=== PATIENT | female | born 1930 | race Caucasian/White ===

== ENCOUNTER 2017-10-11 16:53 | Inpatient (IN) | payer OTHER ==
[~2017-10-11] VITALS: Ht 160 cm; Wt 70.8 kg
[~2017-10-11 16:53] MED LIST: ACETAMINOPHEN-1 EAC1 PO; ADULT LOW DOSE81 MG PO; ALEVE220 MG PO; ALLOPURINOL 30300 M1 PO; ALLOPURINOL 30300 M3 PO; ALTACE10 MG PO; ALTACE5 M1 PO; AMBEREN PO; ARICEPT 5 MG TAB5 MG PO; ASPIR 8181 MG PO; ASPIRIN325 PO; ATENOLOL 100MG100 M2 PO; BACTRIM DS TAB1 EACH PO; CARDIZEM CD180 MG PO; CARTIA XT; CELEXA 20 MG TA20 M1 PO; DARVOCET-N 1001 EACH PO; DICLOFENAC SODI75 MG PO; DIGOXIN250 MCG PO; ELIDEL CREAM 1%30 G1 TOP; EVISTA PO; GENTAMICIN 0.1%15 G2 TOP; GLUCOPHAGE500 MG PO; HYDRALAZINE 10M10 MG PO; HYDROCHLOROTHIA25 M1 PO; HYDROCODONE-AP1 EAC6 PO; KEFLEX500 MG PO; LEVAQUIN 250 M250 MG PO; LEVAQUIN 500 M500 M2 PO; LUMIGAN2.5 M1 OPHTHALMIC; MEDROLDOSEPACK PO; METFORMIN ER 5500 MG PO; NORVASC 2.5 MG2.5 M1 PO; ONE DAILY FOR1 EAC3 PO; PREDNISONE 10 M10 M1 PO; RESTORIL15 MG PO; SANCTURA20 MG PO; TOPROL XL50 MG PO; TRAMADOL 50 MG50 MG PO; TRIANEX17 GM TOP; TYLENOL325 MG PO; ULTRAM 50MG TAB50 MG; VESICARE10 M1 PO; VITAMIN B-1100 M1 PO; XALATAN2.5 ML; XALATAN2.5 ML OPHTHALMIC; ZOCOR40 MG PO
[2017-10-11 16:57] VITALS: BP 197/93
[2017-10-11 17:19] LABS: ABSOLUTE BASOPHILS 0.1 thou/uL (0.0-0.2); ABSOLUTE EOSINOPHILS 0.1 thou/uL (0.0-0.7); ABSOLUTE LYMPHOCYTES 2.7 thou/uL (0.8-5.3); ABSOLUTE MONOCYTES 0.5 thou/uL (0.0-1.2); ABSOLUTE NEUTROPHILS 5.2 thou/uL (1.6-8.1); BASOPHILS 0.7 %; EOSINOPHILS 1.5 %; HEMATOCRIT 39.6 % (37.0-47.0); HEMOGLOBIN 13.3 gm/dL (12.0-15.0); MCH 29.3 pg (26.0-34.0); MCHC 33.5 g/dL (28.0-37.0); MCV 87.4 fL (80.0-100.0); MONOCYTES 6.1 %; MPV 7.6 fl. (7.2-11.1); NUCLEATED RBCS 0 /100WBC; PLATELET COUNT* 241 thou/uL (150-400); POLYS 60.7 %; RBC 4.53 mil/uL (4.20-5.00); RDW-CV 15.5 % (10.5-14.5); WBC 8.6 thou/uL (4.0-11.0)
[2017-10-11 17:27] LABS: ANION GAP 10 mmol/L (7-16); BUN 18 mg/dL (7-18); CALCIUM 9.8 mg/dL (8.5-10.1); CHLORIDE 104 mmol/L (98-107); CO2 24 mmol/L (21-32); CREATININE 1.2 mg/dL (0.6-1.3); GLUCOSE 153 mg/dL (70-99); POTASSIUM 3.8 mmol/L (3.5-5.1); SODIUM 138 mmol/L (136-145)
[2017-10-11 17:28] LABS: APTT 26.6 Seconds (25.0-31.3)
[2017-10-11] MEDS ORDERED: TRAMADOL 50 MG50 MG PO (17:47)
[2017-10-11 17:48] LABS: ALBUMIN 3.7 g/dL (3.4-5.0); ALKALINE PHOSPHATASE 95 U/L (46-116); CK-MB MASS 0.5 ng/mL (<0.5-3.6); NT-PRO BRAIN NAT PEPTIDE 4864 pg/mL (<300); SGOT 16 U/L (15-37); SGPT 20 U/L (30-65); TOTAL BILIRUBIN 0.4 mg/dL (<0.1-1.0); TOTAL PROTEIN 7.5 g/dL (6.4-8.2); TROPONIN-I LEVEL <0.06 ng/mL (<0.06)
[2017-10-11] MEDS ORDERED: BACTRIM DS TAB1 EACH PO (17:48)
[2017-10-11 17:50] LABS: URINE BILIRUBIN NEGATIVE (Negative); URINE BLOOD NEGATIVE (Negative); URINE CLARITY CLEAR; URINE COLOR YELLOW; URINE GLUCOSE-RANDOM NEGATIVE (Negative); URINE KETONES NEGATIVE (Negative); URINE LEUKOCYTES-REFLEX NEGATIVE (Negative); URINE NITRITE-REFLEX NEGATIVE (Negative); URINE PROTEIN TRACE (Negative); URINE SPECIFIC GRAVITY 1.025 (1.005-1.030); URINE UROBILINOGEN 0.2 E.U./dl (0.2-1.0)
[2017-10-11 18:15] VITALS: BP 185/95
[2017-10-11 18:30] VITALS: BP 195/97
[2017-10-11 18:35] VITALS: BP 197/96
--- NOTE | 2017-10-11 18:59 | NUR ---
PT ADMITTED TO ROOM 233 AT APPROXIMATELY 1840 FROM ED VIA CART WITH TIA. REPORT RECEIVED FROM HAMILTON ADAMSON. PT ORIENTED TO ROOM AND CALL LIGHT. ADMISSION HISTORY COMPLETED. REFER TO CHARTING. SEPSIS SCREENING COMPLETED-NEGATIVE. BEDSIDE SWALLOW SCREEN COMPLETED- PT PASSED WITH NO DIFFICULTIES. NIH COMPLETED- PT SCORING 1 DUE TO NOT KNOWING CURRENT MONTH/YEAR. PT BLOOD PRESSURE ELEVATED. REFER TO CHARTING. PT GIVEN PRN CLONIDINE IN ED AND GIVEN 10MG PO HYDRALAZINE BY THIS RN. WILL MONITOR CLOSELY. PT TRACING SR WITH FIRST DEGREE AND BBB ON THE WARP TRUCKER. PT ON RA SAT 91%- PT PLACED ON 2L NC SAT UP TO 96%. PT DENIES ANY PAIN OR SHORTNESS OF BREATH. PT INCONT OF URINE PER PT DAUGHTER. PT HAD BRIEF ON- BRIEF REMOVED AND TRAV PLACED UNDER PT. PER PT DAUGHTER, PT LIVES AT HOME WITH A GENTLEMAN- SIMILAR TO A ROOM MATE- PT HAS CARE GIVERS THAT COME OVER AND TAKE CARE OF PT, PT IS RARELY AT HOME BY HERSELF. PT DAUGHTER WENT TO CHECK ON PT TODAY AND NOTED THAT PT HAD SLURRED WORDS AND RIGHT SIDED FACIAL DROOP. PT IS WHEELCHAIR BOUND AT HOME. 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 NEURO CONSULT IN PLACE FOR TIA. MEDICATIONS PER MAY. PT REPOSITIONED EVERY 2 HOURS FOR COMFORT. HOURLY ROUNDING OBSERVED. BED IN LOW POSITION. BED ALARM IN PLACE. FALL PRECAUTIONS IN PLACE. CALL LIGHT WITHIN REACH. WILL CONTINUE PLAN OF CARE.
[2017-10-11 19:45] VITALS: BP 176/93
[2017-10-12] VITALS: BP 174/71
[2017-10-12 04:00] VITALS: BP 190/83
[2017-10-12 06:00] LABS: CHOLESTEROL 183 mg/dL (<200); HDL CHOLESTEROL 60 mg/dL (>40); LDL CHOLESTEROL 109 mg/dL (<100); TC:HDL 3.1 Ratio (Not establshd); TRIGLYCERIDE 73 mg/dL (<150); VLDL 15 mg/dL (<40)
[2017-10-12 06:03] LABS: SERUM ASSESSMENT Clear
[2017-10-12 08:00] VITALS: BP 197/94
--- NOTE | 2017-10-12 08:04 | NUR ---
RECEIVED REPORT AND ASSUMED CARE AT 1900. BP SLIGHTLY ELEVATED, OTHERWISE VSS. CARDIAC MONITORING IN PLACE. ASSESSMENT COMPLETED CHARTED. NIH=0. PT DENIES ANY COMPLAINTS OF PAIN. PT ON 2L NC, Q2T. DISCUSSED PLAN OF CARE WITH PT, VERBALIZED UNDERSTANDING. DURING HOURLY ROUNDING PT ASSESSED 2210, NIH=8. NEUROLOGY CONTACTED. CTA OF HEAD W/ CONTRAST AND CTA CAROTIDS ORDERED AND COMPELTED. RESULTS COMMUNICATED TO PHYSICIAN. MRI ORDERED FOR 10/12/17 MORNING. PT REASSESSED 2347 NIH=4. ASSESSMENT 0400, NIH=9 . FOLLOW UP ASSESSMENT 0530 NIH=8. PHYSICIAN CONTACTED. PLAN OF CARE TO FOLLOW DIAGNOSTIC TESTING. HOURLY ROUNDING COMPLETED, ALL NEEDS MEET. POSITION CHANGED EVERY TWO HOURS. BED LOCKED IN LOWEST POSITION, CALL LIGHT WITHIN REACH, BED ALARM ON. NURSING WILL CONTINUE TO MONITOR.
[2017-10-12 11:25] VITALS: BP 203/103
--- NOTE | 2017-10-12 13:18 | NUR ---
Nurse Coordinator note: Met with son, Antoni, and friend, Leonel. Patient sleeping durinmg exchange. Reviewed stroke program and plan. Discussed NPO status and that IV hydration will be provided until determination made by Speech Language Pathologist. RNs will provide oral care during this time. Will continue to follow patient.
--- NOTE | 2017-10-12 14:06 | NUR ---
ASSUMED CARE OF PT AT 1335. INTRODUCED MY SELF TO PT AND FAMILY. PT RESTING IN BED NO C/O PAIN OR DISTRESS AT THIS TIME. WILL CONTINUE TO MONITOR.
--- NOTE | 2017-10-12 14:30 | NUR ---
MET WITH PT AND DTR/LYNNE TO DISCUSS HOME SITUATION/DC PLANNING. PT LIVES WITH HER S/O ELIGIO. SHE HAS 7 CHILDREN, ALL OF WHOM ASSIST WITH PT'S CARE. PT ISN'T ALONE AT HOME, EITHER ELIGIO IS THERE OR CHILDREN OR HIRED CG ARE WITH HER. PT NEEDS ASSIST WITH TRANSFERS. SHE IS W/C BOUND. PT HAS W/C, GRAB BARS, HI TOILET SEAT AND WALK IN TUB. PT CAN FEED AND DRESS HERSELF, BATHE HERSELF ONCE IN THE TUB AND TOILET SELF ONCE TRANSFERRED ON THE TOILET. FAMILY DOES COOKING, CLEANING, ETC. THEY TRANSPORT TO [employer]. OTHERWIFE PT IS HOMEBOUND. HAS HAD HH IN THE PAST AND BEEN TO [place] FOR SNF [facility] REHAB. ADMITTED WITH STROKE, HAS INPT REHAB EVAL. DISCUSSED WITH DTR OPTIONS OF REHAB, SNF OR HOME. THEIR GOAL IS TO TAKE PT HOME IF SHE IS ABLE TO GET BACK CLOSE TO HER BASELINE PLOF. DTRS LYNNE AND BARRON ARE DPOA. AWAIT THERAPY EVALS. WILL FOLLOW
--- NOTE | 2017-10-12 14:35 | 2DMMODE ---
[place] [address] 2 D/M-MODE ECHOCARDIOGRAM Name: MARICARMEN KENNEDY Room: [place] [address] ADM IN [facility]#: [id number] Admission: 10/11/17 Attend Phys: Danny Pena, Discharge: Date of : [birth year] Date of Service: 10/12/17 1435 Report #: [id number] THIS REPORT FOR: //name// APPROVED REPORT Study performed: 10/12/2017 10:04:36 EXAM: Comprehensive 2D, Doppler, and color-flow Echocardiogram Patient Location: In-Patient Room #: [facility] Status: routine BSA: 1.74 HR: 59 bpm BP: 197/94 mmHg Rhythm: NSR Other Information Study Quality: Good Indications CVA/TIA Echo Enhancing Agent Indication: Rule out Shunt Agent(s) / Amount(s) Used: Agitated Saline 10 cc 2D Dimensions LVEF(%): 50.08 (>50%) IVSd: 13.04 (7-11mm) LVOT Diam: 20.15 (18-24mm) LVDd: 46.45 mm PWd: 10.96 (7-11mm) Ascending Ao: 35.98 (22-36mm) LVDs: 34.67 (25-40mm) Aortic Root: 33.15 mm Edwards's LVEF: 50.08 % Volumes Left Atrial Volume (Systole) LA ESV Index: 42.50 mL/m2 Aortic Valve AoV Peak Chau.: 1.25 m/s AO Peak Gr.: 6.22 mmHg LVOT Max P.51 mmHg AO Mean Gr.: 3.29 mmHg LVOT Mean P.21 mmHg LVOT Max V: 0.79 m/s AO V2 VTI: 21.89 cm LVOT Mean V: 0.50 m/[place] [address] 2 D/M-MODE ECHOCARDIOGRAM Name: MARICARMEN KENNEDY Room: [address] IN ..#: [id number] Admission: 10/11/17 Attend Phys: Danny Pena, Discharge: Date of : [birth year] Date of Service: 10/12/17 1435 Report #: [id number] SKIP (VTI): 2.48 cm2 LVOT V1 VTI: 17.04 cm Mitral Valve E/A Ratio: 0.46 MV Decel. Time: 333.69 ms MV E Max Chau.: 0.53 m/s MV PHT: 96.77 ms MVA (PHT): 2.27 cm2 TDI E/Lateral E': 7.57 E/Medial E': 13.25 Medial E' Chau.: 0.04 m/s Lateral E' Chau.: 0.07 m/s Pulmonary Valve PV Peak Chau.: 0.82 m/s PV Peak Gr.: 2.70 mmHg Tricuspid Valve RAP Estimate: 5.00 mmHg TR Peak Gr.: 21.27 mmHg RVSP: 26.27 mmHg PA Pressure: 26.27 mmHg Left Ventricle The left ventricle is normal size. There is distal septal hypokinesis Mild concentric left ventricular hypertrophy. Left ventricular systolic function is moderately decreased. LVEF is 40%. Grade I - abnormal relaxation pattern. Right Ventricle The right ventricle is normal size. The right ventricular systolic function is normal. Atria Left atrium is mild to moderately dilated. The right atrium size is normal. Aortic Valve Mild aortic valve sclerosis. Mild aortic regurgitation. There is no aortic valvular stenosis. Mitral Valve The mitral valve is normal in structure. Mild mitral regurgitation. No evidence of mitral valve stenosis. Tricuspid Valve The tricuspid valve is normal in structure. [place] [address] 2 D/M-MODE ECHOCARDIOGRAM Name: MARICARMEN KENNEDY Room: [address] IN [facility]#: [id number] Admission: 10/11/17 Attend Phys: Danny Pena, Discharge: Date of : [birth year] Date of Service: 10/12/17 1435 Report #: [id number] valve regurgitation noted. Pulmonic Valve The pulmonary valve is normal in structure. There is no pulmonic valvular regurgitation. Great Vessels The aortic root is normal in size. IVC is normal in size and collapses with >50% inspiration Pericardium There is no pericardial effusion. <Conclusion> The left ventricle is normal size. Mild concentric left ventricular hypertrophy. Left ventricular systolic function is moderately decreased. LVEF is 40%. Grade I - abnormal relaxation pattern. The right ventricle is normal size. Left atrium is mild to moderately dilated. Mild aortic valve sclerosis. Mild aortic regurgitation. There is no aortic valvular stenosis. The mitral valve is normal in structure. Mild mitral regurgitation. No evidence of mitral valve stenosis. The tricuspid valve is normal in structure. IVC is normal in size and collapses with >50% inspiration There is no pericardial effusion. There is distal septal hypokinesis <ELECTRONICALLY SIGNED> By: Sharath Ortega MD, FACC 10/12/17 1435 1435 1435 Sharath Ortega MD, FACC /INF
[2017-10-12 15:12] VITALS: BP 178/87
--- NOTE | 2017-10-12 17:29 | EKG ---
[place] [address] ELECTROCARDIOGRAM REPORT Name: MARICARMEN KENNEDY Room: [place] [address] ADM IN .R.#: [id number] Admission: 10/11/17 Attend Phys: Danny Pena MD Discharge: Date of : [birth year] Report #: [id number] THIS REPORT FOR: //name// [facility] ED Test Date: 2017-10-11 Test Time: 17:11:16 Pat Name: MARICARMEN KENNEDY Department: Room: [facility] Gender: F Baggage Smasher: Baylee CUEVAS : 1930 Requested By: Maikel Zimmerman Order Number: [id number] MD: Sharath Ortega Measurements Intervals [place] Rate: 82 P: -8 DE: 223 QRS: -23 QRSD: 143 T: 153 QT: 403 QTc: 471 Interpretive Statements Sinus rhythm Prolonged DE interval Left bundle branch block Compared to ECG 05/29/2015 10:41:35 Ventricular premature complex(es) no longer present Electronically Signed On 10-12-2017 17:29:42 CDT by Sharath Ortega [email or web address] <ELECTRONICALLY SIGNED> By: Sharath Ortega MD, [facility] 10/12/17 1729 1711 1711 Sharath Ortega MD, [facility] /EPI
--- NOTE | 2017-10-12 17:32 | EKG ---
[place] [address] ELECTROCARDIOGRAM REPORT Name: MARICARMEN KENNEDY Room: [place] [address] ADM IN M.R.#: [id number] Admission: 10/11/17 Attend Phys: Danny Pena MD Discharge: Date of : [birth year] Report #: [id number] THIS REPORT FOR: //name// [facility] Test Date: 2017-10-12 Test Time: 04:55:01 Pat Name: MARICARMEN KENNEDY Department: Room: [place] [address] Gender: F After School Program Assistant: WESLEY : 1930 Requested By: Jessica Carrizales Order Number: [id number] Reading MD: Sharath Ortega Measurements Intervals [place] Rate: 60 P: -39 TN: 280 QRS: -13 QRSD: 146 T: 176 QT: 432 QTc: 432 Interpretive Statements Sinus rhythm Prolonged TN interval Left bundle branch block Compared to ECG 05/29/2015 10:41:35 Ventricular premature complex(es) no longer present Electronically Signed On 10-12-2017 17:32:30 CDT by Sharath Ortega [email or web address] <ELECTRONICALLY SIGNED> By: Sharath Ortega MD, [facility] 10/12/17 1732 0455 0455 Sharath Ortega MD, [facility] /EPI
--- NOTE | 2017-10-12 17:34 | NUR ---
PT REMAINS LETHARGIC AND IS RESTING IN BED WITH FAMILY AT BEDSIDE. PT DOES NOT APPEAR TO HAVE ANY PAIN OR DISTRESS AND SHE DOES TRY TO TALK WHEN YOU SPEAK TO HER BUT SHE IS UNABLE TO COMPOSE THE WORDS AND GET THEM OUT. HOURLY ROUNDING COMPLETED FOR COMFORT AND SAFTEY. NURSING WILL CONTINUE TO MONITOR.
[2017-10-12 20:00] VITALS: BP 166/84
[2017-10-13] VITALS: BP 173/89
[2017-10-13 03:08] LABS: GLYCOHEMOGLOBIN (HGB A1C) 5.7 % (4.8-5.6)
[2017-10-13 04:00] VITALS: BP 191/90
--- NOTE | 2017-10-13 06:57 | NUR ---
RECEIVED REPORT AND ASSUMED CARE AT 1900. VSS. CARDIAC MONITORING IN PLACE. ASSESSMENT COMPLETED CHARTED, NIH COMPLETED AT BEGINNING OF SHIFT=8. PT DENIES ANY COMPLAINTS OF PAIN. BED IN LOWEST POSITION, CALL LIGHT WITHIN REACH. BED ALARM ON. PT POSITION CHANGED EVERY TWO HOURS, HEELS OFF LOADED. HOURLY ROUNDING COMPLETED, ALL NEEDS MET. PT ON 2L NC, BEDREST, INCONT. PT WAS HAVING TROUBLE CLEARING SECRETIONS AND EXPRESSED DISCOMFORT R/T NON PRODUCTIVE COUGH. PROVIDER CONTACTED, BREATHING TX ORDERED QID AND Q4HR PRN. PT MOVED FROM RM 233 TO 231 FOR THE PT TO BE CLOSER TO NURSES STATION. PT FAMILY MEMBER/ DAUGHTER CONTACTED ABOUT ROOM CHANGE TO SHARE WITH REST OF FAMILY. WILL CONTINUE TO MONITOR
[2017-10-13 08:00] VITALS: BP 187/117
--- NOTE | 2017-10-13 09:30 | NUR ---
ASSUMED PT. CARE AND RECEIVED REPORT AT 0730. PT AWAKES EASILY BUT DROWSY, BP ELEVATED AT 187/117, MONITOR ON TRACING SR 1ST BBB. FULL NIH WITH SCORE OF 11 COMPLETED. PT. DNL AT BEDSIDE. ON 1.5L NC @ 97%. FULL ASSESSMENT COMPLETED, REFER TO CHARTING. DR. BUSH ON UNIT, LONG CONVERSATION WITH DNL. ALSO DISCUSSED PLAN OF CARE AND CHANGES TO BP MED FOR BETTER CONTROL. PT. NPO FOR SPEECH EVAL, PT.IS DROOLING FROM RIGHT SIDE. WILL CONTINUE WITH PLAN OF CARE.
--- NOTE | 2017-10-13 10:52 | NUR ---
Nutrition: Pt assessed d/t Freddy 11. No open wounds noted, per [employer]. Pt admitted with stroke, having difficulty expressing with speech. Currently NPO. Wt: 145#. BG 123, albumin 3.7. H/o TIA, DM, Gout, HTN, w/c bound. Pt cares for self GAS TRUCK DRIVER. Per progress note, if pt fails ST eval, consider PEG. RD will follow POC and make nutrition recs as needed. No other nutrition interventions at this time. Mild risk. Follow up 10/17/17.
[2017-10-13 12:00] VITALS: BP 187/114
[2017-10-13 15:26] VITALS: BP 182/124
--- NOTE | 2017-10-13 16:03 | NUR ---
DR. MOREAU INTO SEE PT. PT. NOT SPEAKING MUCH SHE PREVIOUSLY DID. APPEARS TO BE COMING/GOING WITH SPEECH ABILITY TODAY AND WHEN SHE IS ABLE TO IT IS ONE WORD. PT. DAUGHTER MING AT BEDSIDE DURING VISIT. DISCUSSED GETTING ANOTHER MRI TO SEE PROGRESSION. PT. DAUGHTER DID NOT MAKE ANY FURTHER INQUIRIES TO DR. MOREAU. SPEECH THERAPY INTO SEE. PT. ON PUREED AND HONEY THICK POST EVAL AND WILL OBTAIN VIDEO SWALLOW TOMORROW WHEN AVAILABLE. PT. FAMILY CONTINUED TO SPOON FEED PT. HONEY THICK LIQUIDS POST VISIT AND PT. DID COUGH AND APPEAR TO BE CHOKED UP BY THEM. WILL CONTINUE WITH PUREED FOOD FOR NOW, PT. TOLERATING THIS WELL.
--- NOTE | 2017-10-13 18:33 | NUR ---
NEW MRI RESULTS CALLED TO DR. MOREAU DUE TO INCREASE IN ACUTE INFARCTIONS. PER DR. MOREAU NOTHING CAN BE DONE AT THIS TIME, NO NEW ORDERS RECEIVED.
[2017-10-13 19:30] VITALS: BP 194/95
--- NOTE | 2017-10-13 19:44 | NUR ---
PT. STABLE REMAINDER OF SHIFT. [facility] BETWEEN 10-14 TODAY. INCONT. OF URINE MULTIPLE TIMES. PT. DID SIT UP IN RECLINER FOR APPROX. 3 HOURS THIS MORNING, TOLERATED WELL. HOURLY ROUNDING COMPLETED THROUGH OUT THE DAY FOR PT. SAFETY. FAMILY AT PT. BEDSIDE MAJORITY OF THE DAY.
[2017-10-14] VITALS: BP 175/80
[2017-10-14 04:00] VITALS: BP 216/118
[2017-10-14 05:28] LABS: ABSOLUTE BASOPHILS 0.1 thou/uL (0.0-0.2); ABSOLUTE EOSINOPHILS 0.1 thou/uL (0.0-0.7); ABSOLUTE LYMPHOCYTES 2.5 thou/uL (0.8-5.3); ABSOLUTE MONOCYTES 0.6 thou/uL (0.0-1.2); ABSOLUTE NEUTROPHILS 5.4 thou/uL (1.6-8.1); BASOPHILS 0.7 %; EOSINOPHILS 1.5 %; HEMATOCRIT 38.6 % (37.0-47.0); HEMOGLOBIN 12.7 gm/dL (12.0-15.0); MCV 87.9 fL (80.0-100.0); MONOCYTES 7.2 %; MPV 7.9 fl. (7.2-11.1); NUCLEATED RBCS 0 /100WBC; PLATELET COUNT* 217 thou/uL (150-400); POLYS 61.6 %; RBC 4.39 mil/uL (4.20-5.00); RDW-CV 15.4 % (10.5-14.5); WBC 8.8 thou/uL (4.0-11.0)
[2017-10-14 05:52] LABS: ALBUMIN 3.5 g/dL (3.4-5.0); CALCIUM 8.7 mg/dL (8.5-10.1); CREATININE 0.8 mg/dL (0.6-1.3); POTASSIUM 3.2 mmol/L (3.5-5.1); TOTAL BILIRUBIN 0.6 mg/dL (<0.1-1.0); TOTAL PROTEIN 6.6 g/dL (6.4-8.2)
--- NOTE | 2017-10-14 08:21 | NUR ---
RECEIVED REPORT AND ASSUMED CARE AT 1900. BP ELEVATED OTHERWISE VSS. PT DENIES PAIN. ASSESSMENT COMPLETED CHARTED, NIH=14 FOR EACH Q4HR CHECK. POSITION CHANGED EVERY TWO HOURS. PT GIVEN BATH AND BEDDING CHANGED ON THIS SHIFT. BED LOCKED IN LOWEST POSITION, CALL LIGHT WITHIN REACH, BED ALARM ON . HOURLY ROUNDING COMPLETED AND ALL NEEDS MET. MEDICATION ADMIN PER ORDERS. NURSING WILL CONTINUE TO MONITOR
[2017-10-14 08:31] VITALS: BP 156/84
[2017-10-14 12:05] VITALS: BP 174/102
--- NOTE | 2017-10-14 12:30 | NUR ---
CONTINUE TO FOLLOW, MET WITH PT'S S/O ELIGIO AND 2 DTRS, BARRON WHO IS A DPOA AND MING. DISCUSSED POC AND SWALLOW EVAL. THEY ARE AWARE THEY NEED TO DISCUSS FEEDING TUBE IF NEEDED AND PLACEMENT. TALKED WITH THEM ABOUT PLACEMENT, THEIR FIRST CHOICE IS PT TO GO TO REHAB. AWARE THAT PT WILL NEED TO QUALIFY AND INSURANCE TO AUTH IT FIRST, AND THAT SNF WOULD BE 2ND OPTION. GAVE LIST AND DISCUSSED FACILITIES. AWARE REHAB [facility]
[2017-10-14 16:08] VITALS: BP 183/84
--- NOTE | 2017-10-14 17:51 | NUR ---
RECEIVED CONSULT FOR POSSIBLE REHAB ADMISSION. CONSULT HAS BEEN ACKNOWLEDGED BY RETAIL MANAGEMENT TRAINEE AND DR. HORN. PATIENT ADMITTED WITH STROKE PLOF WAS W/C BOUND AND DEPENDENT FOR TRANSFERS BUT ABLE TO FEED, DRESS AND BATHE SELF. PATIENT SEEN BY PT/OT/ST AND HAS DEFINATE THERAPIES NEEDS. SHE HAS MODERATE TO SEVERE COGNITIVE DEFICITS AND MAY REQUIRE A FEEDING TUBE PLACED. WILL FOLLOW ALONG TO SEE HOW PATIENT PROGRESSES TO DETERMINE ACUTE REHAB VS. SKILLED. THANK YOU FOR THIS REFERRAL.
--- NOTE | 2017-10-14 18:01 | NUR ---
PT CARE ASSUMED AFTER REPORT. ASSESSMENT COMPLETE. SR/1ST DEGREE/BBB ON MONITOR. NIH Q4H. SEE CHARTING FOR RESULTS. R SIDE FLACID. IVF INFUSING. PT INCONT OF BOWEL AND BLADDER. LAM CARE AND BED CHANGES PRN. BARRIER CREAM APPLIED. MULTIPLE FAMILY MEMBERS WITH FREQUENT REPEAT QUESTIONS. FAMILY EDUCATED AND QUESTIONS ANSWERED PER NURSING AND LINSEY. PT UP TO CHAIR FOR LUNCH WITH MAX ASSIST. FALL PRECAUTIONS IN PLACE INCLUDING BED ALARM. NOT PROGRESSING TOWARDS GOALS.
[2017-10-14 20:49] VITALS: BP 179/77
[2017-10-15] VITALS (7 sets, daily range): BP systolic 141–190; BP diastolic 60–99
[2017-10-15 05:41] LABS: ABSOLUTE BASOPHILS 0.1 thou/uL (0.0-0.2); ABSOLUTE EOSINOPHILS 0.1 thou/uL (0.0-0.7); ABSOLUTE LYMPHOCYTES 1.7 thou/uL (0.8-5.3); ABSOLUTE MONOCYTES 0.6 thou/uL (0.0-1.2); ABSOLUTE NEUTROPHILS 4.9 thou/uL (1.6-8.1); BASOPHILS 0.9 %; EOSINOPHILS 1.9 %; HEMATOCRIT 34.8 % (37.0-47.0); HEMOGLOBIN 11.8 gm/dL (12.0-15.0); LYMPHOCYTES 23.3 %; MCH 29.9 pg (26.0-34.0); MCHC 33.9 g/dL (28.0-37.0); MCV 88.2 fL (80.0-100.0); MONOCYTES 7.7 %; MPV 8.1 fl. (7.2-11.1); NUCLEATED RBCS 0 /100WBC; PLATELET COUNT* 192 thou/uL (150-400); POLYS 66.2 %; RBC 3.94 mil/uL (4.20-5.00); RDW-CV 15.3 % (10.5-14.5); WBC 7.4 thou/uL (4.0-11.0)
[2017-10-15 06:47] LABS: ALBUMIN 3.4 g/dL (3.4-5.0); CALCIUM 9.1 mg/dL (8.5-10.1); CREATININE 0.8 mg/dL (0.6-1.3); POTASSIUM 3.5 mmol/L (3.5-5.1); TOTAL BILIRUBIN 0.6 mg/dL (<0.1-1.0); TOTAL PROTEIN 5.9 g/dL (6.4-8.2)
--- NOTE | 2017-10-15 06:50 | NUR ---
PT IS ABLE TO COMMUNICATE HER NEEDS TO STAFF WITH SOME DIFFICULTY; SHE HAS RECENTLY HAD A STROKE AND IS EXPERIENCING SOME RIGHT SIDED FACIAL DROOP WELL SOME EXPRESSIVE APHASIA; SHE OFTEN REQUIRES SOME EXTRA TIME. SHE HAS DENIED THE NEED FOR PAIN MEDICATION UP TO THIS TIME. PUREED FOOD WITH THIN LIQUIDS (NO STRAWS) DIET MAINTAINED. PT TAKES PILLS CRUSHED AND IN APPLESAUCE.
--- NOTE | 2017-10-15 09:00 | NUR ---
VSS, ASSUMED CARE IN THE AM, ASSESSMENT PERFORMED AND CHARTED FALL PRECAUTIONS IN PLACE AND CALL LIGHT IN REACH, PT DENIES ANY PAIN AND ID VERY SLEEPY, PT IS TRACING SR ON THE MONITOR AND ON RA, PT RIGHT RIGHT SIDE ARM AND LEG IS FLACCID AND HER GOAL IS TO SIT UP IN CHAIR AND PROTECT FROM ASPIRATION, PT HAD SOME COAGHING WITH HER MEDS THIS ADMIT
--- NOTE | 2017-10-15 17:44 | NUR ---
VSS, PT IS TRACING SR ON THE MONITOR, SHE WAS UP TO THE CHAIR FOR THE AFTERNOON, PT IS ON RA AND INCONT, FEEDER, Q2 TURN, NIH 14, RIGHT SIDE TOTLA WEAKNESS, HOURLY ROUNDS COMPLETED, WILL FOLLOW WITH PLAN OF CARE.
[2017-10-16 04:00] VITALS: BP 177/76
[2017-10-16 07:30] VITALS: BP 180/91
--- NOTE | 2017-10-16 08:08 | NUR ---
PT IS ABLE TO COMMUNICATE HER NEEDS TO STAFF WITH SOME DIFFICULTY; SHE IS ABLE TO RESPOND WITH A NOD OR AN ACTION TO INDICATE HER NEEDS, BUT IS PRIMARILY NON-VERBAL AT THIS TIME. SHE IS A FEEDER, SIT UP FOR ANY FEEDING AND LET HER SIT UP FOR A WHILE AFTER INTAKE D/T DELAYED SWALLOWING. POSSIBLE D/C TO REHAB HERE ON TUESDAY.
--- NOTE | 2017-10-16 09:00 | NUR ---
VSS, ASSUMED CARE IN THE AM, ASSESSMENT PERFORMED AND CHARTED, FALL PRECAUTIONS IN PLACE AND CALL LIGHT IN REACH,, SHE HAS A STAGE 2 COCUXYS PRSSURE WOUND, ON RA IS A Q2 TURN, FEEDER, INCONT OF B/B DENIES ANY PAIN, IS A&O4 BUT HAS EXTENSIVE APHASIA, SHE IS VERY SLEEPY AND HARD TO WAKE UP, TOTAL RIGHT SIDE WEAKNESS, PT HAS VERY WEAK SWALLOW AND SHE IS NOT ABLE TO SWALLOW CRUSHED PILLS IN APPLE SAUSE,
[2017-10-16 12:10] VITALS: BP 128/62
--- NOTE | 2017-10-16 12:12 | EEG ---
[address] [address] EEG STUDY REPORT Name: MARICARMEN KENNEDY Room: [address] IN .#: [id number] Admission: 10/11/17 Attend Phys: Danny Pena MD Discharge: Date of : [birth year] Report #: [id number] THIS REPORT FOR: //name// CC: Danny Loya The patient is an 87-year-old female who presents with intermittent altered mental status. An EEG is requested to rule out subclinical seizures. DESCRIPTION: Using the 10-20 electrode system, a portable EEG was performed. The record consists of 7-8 Hz moderate amplitude posterior dominant rhythm, which attenuates with eye opening. Stage I sleep was characterized by attenuation of the background record. Photic stimulation was nonactivating. No focal abnormalities or epileptiform discharges were noted. IMPRESSION: This is a mildly abnormal adult awake to stage I sleep record because of slowing of the posterior dominant rhythm. However, this may be secondary to drowsiness and is a nonspecific finding. More importantly, there is no evidence of subclinical seizures. <ELECTRONICALLY SIGNED> By: Jessica Carrizales DO 10/16/17 1212 1403 1746Jessica Carrizales, DO /nt
[2017-10-16 16:00] VITALS: BP 140/66
--- NOTE | 2017-10-16 16:24 | NUR ---
VSS, PT IS NOT PROGRESSING TOWARDS GOAL, PT HAS BEEN VERY SLEEPY, AND NOT WILLING TO WORK WITH STAFF, PT SIS WAKE UP WITH FAMILY AND AT BEDSIDE BUT EVEN AT THAT TIME PT NEVER WANTED TO TAKE ANY MEDS, PT IS A&O4 AND FOLLOWS COMANDS, SHE IS INCONT, FEEDER, TRACING SR ON THE MONITOR AND ON RA, PT IS NO EATTING AND WILL NOT SWALLOW ANY CRUSED MEDS/APPLE/ ANY FOOD. PT NIH HAD IS 14, RIGHT SIDE WEAKNESS, PT NEEDS A NEW VIDEO SWALLOW. PT GOAL IS TO IMPROVE ACTIVITY AND BED HAS BEEN TO WEAK AND SLEEPY TO DO ANYTHING, HOURLY ROUNDS COMPLETED, WILL FOLLOW WITH PLAN OF CARE.
[2017-10-16 20:06] VITALS: BP 176/74
[2017-10-16 23:57] VITALS: BP 185/95
[2017-10-17 03:51] VITALS: BP 187/88
[2017-10-17 05:03] LABS: ABSOLUTE BASOPHILS 0.1 thou/uL (0.0-0.2); ABSOLUTE EOSINOPHILS 0.1 thou/uL (0.0-0.7); ABSOLUTE LYMPHOCYTES 1.7 thou/uL (0.8-5.3); ABSOLUTE MONOCYTES 0.7 thou/uL (0.0-1.2); ABSOLUTE NEUTROPHILS 6.7 thou/uL (1.6-8.1); BASOPHILS 0.8 %; EOSINOPHILS 1.6 %; HEMATOCRIT 38.3 % (37.0-47.0); HEMOGLOBIN 12.8 gm/dL (12.0-15.0); LYMPHOCYTES 18.3 %; MCH 29.5 pg (26.0-34.0); MCHC 33.5 g/dL (28.0-37.0); MCV 87.9 fL (80.0-100.0); MONOCYTES 7.2 %; MPV 8.1 fl. (7.2-11.1); NUCLEATED RBCS 0 /100WBC; PLATELET COUNT* 206 thou/uL (150-400); POLYS 72.1 %; RBC 4.36 mil/uL (4.20-5.00); RDW-CV 15.4 % (10.5-14.5); WBC 9.3 thou/uL (4.0-11.0)
[2017-10-17 05:37] LABS: ALBUMIN 3.4 g/dL (3.4-5.0); CALCIUM 9.5 mg/dL (8.5-10.1); CREATININE 0.9 mg/dL (0.6-1.3); POTASSIUM 3.5 mmol/L (3.5-5.1); TOTAL BILIRUBIN 0.6 mg/dL (<0.1-1.0)
[2017-10-17 08:00] VITALS: BP 139/64
--- NOTE | 2017-10-17 08:08 | NUR ---
PT IS ABLE TO COMMUNICATE HER NEEDS TO STAFF WITH SOME DIFFICULTY; SHE CAN MAKE SOME AUDIBLE VOCAL SOUNDS, BUT THEY ARE MOSTLY UNINTELLIGABLE. SHE IS ABLE TO FOLLOW ALONG AND WILL ANSWER QUESTIONS WITH A NOD OR HAND MOTION. SHE HAS DENIED THE NEED FOR PAIN MEDICATION UP TO THIS TIME. PT MUST BE SAT UP FOR ANY SWALLOWING; SHE HAS A DELAYED SWALLOW AND OFTEN NEEDS TO BE ENCOURAGE TO SWALLOW COMPLETELY. CAN TAKE PILLS, CRUSHED, IN FOOD. POSSIBLE D/C FOR REHAB WITH BOTH ST AND PT/OT.
--- NOTE | 2017-10-17 11:17 | NUR ---
VSS, ASSUMED CARE OF PT IN THE AM, ASSESSMENT PERFORMED AND CHARTED, PT IS VERY SLEEPY AND IS HAS TOTAL RIGHT SIDE WEAKNESS, PT IS NOT SWALLOWING, AND IS HARD TO WAKE, PT IS INCONT OF BOTH B/B, SHE IS TRACING SR ON THE MONITOR AND ON RA, PT GOAL IS SIT UP IN CHAIR, PT HAS A PRESSURE SOAR ON BUTT, FAMILY STATES THAT SHE HAS HAD THAT AT HOME FOR SOMETIME, FAMILY IS AWARE OF THIS SOAR, PT NEEDS ANOTHER SWALLOW EVALUATION, RIGHT HAND AND ARM HAS 3+ EDEMA, PT IS TO BE D/C TO SNF, WILL FOLLOW WITH PLAN OF CARE,
[2017-10-17 12:00] VITALS: BP 155/72
--- NOTE | 2017-10-17 12:32 | NUR ---
CONTINUING TO FOLLOW PATIENT ALONG WITH DR. HORN. PATIENT VERY LETHARGIC HAS NOT BEEN ABLE TO PARTICIPATE WITH THERAPIES OR HAS VERY MINIMAL PARTICIPATION AT A DEPENDENT LEVEL. PATIENT NOT ABLE TO TOLERATE 3 HOURS OF THERAPY AT THIS TIME. FEEL PATIENT WOULD BENEFIT FROM SKILLED FOR INCREASED STRENGTHENING AND ENDURANCE.
--- NOTE | 2017-10-17 13:15 | NUR ---
WOUND CARE NOTE: ASSESSMENT FOR COCCYX WOUND. 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 WOUND MEASURES 2.8X0.8X0.2. MOIST, PINK WOUND BED. LAM-WOUND IS MACERATED. PATIENT IS INCONTINENT OF STOOL, LOOSE, LIQUID. LAM-RECTAL/LAM-VAGINAL AREA ULCERATED DUE TO THE STOOLING. ASSISTED SERVICE CENTER SUPERVISOR TEAM WITH CLEANSING AND PLACING NEW CHUX. APPLIED AQUACEL AG TO WOUND BED. SECURED WITH BORDERED FOAM. PATIENT TOLERATED DRESSING CHANGE WELL. ASSISTED WITH TURNING TO RIGHT SIDE WITH WEDGES. RECOMMEND TURN Q2 HOURS, KEEP OFF WOUND FREQUENT CHECKS FOR INCONTINENCE LIMIT HOB <30 DEGREES ENCOURAGE GOOD NUTRITION/HYDRATION
--- NOTE | 2017-10-17 13:55 | NUR ---
ORDERS RECEIVED FOR DC TO SNF. SPOKE WITH [facility]/INPT REHAB LIASON, PT DOESN'T QUALIFY FOR INPT REHAB, THEY REC: SNF. SPOKE WITH DR BUSH, HE RECOMMENDS SNF ALSO, STATED HE HAD SPOKEN WITH FAMILY OVER THE WEEKEND. CALL TO DIANA/LYNNE TO DISCUSS. FAMILY HAD DISCUSSED AND TOURED [facility] AND WERE INTERESTED IN IT. CALLED AND FAXED REFERRAL TO [facility]. SHE IS REQUESTING UPDATED THERAPY NOTES IN ORDER TO OBTAIN INSURANCE AUTH. [facility] ACCEPTED PT CLINICALLY BUT WILL NEED AUTH AND MAY NOT HAVE UNTIL TOMORROW. UPDATED LYNNE BY PHONE
[2017-10-17 16:19] VITALS: BP 171/91
--- NOTE | 2017-10-17 18:01 | NUR ---
VSS, PT HAS BEEN UP IN CHAIR FOR MOST OF THE AFTERNOON, SHE HAS BEEN MORE AWAKE ON DAY OF CARE, PT IS ON RA AND IS TRACING SR ON THE MONITOR, PT IS INCONT AND HER BUTT HAS A STATE 2 ULCER, PT IS A&O4 BUT NOT ABLE TO PERFORM ANY SPEECH, SHE IS A FEEDER, BUT HAS NOT BEEN ABLE TO SWALLOW ANY FOOD FOR ME ON DAY OF CARE, I HAVE TALKED WITH SPEECH ABOUT HOW TO PROCEED, WAS INFORMED TO ENCOURAGE PT TO SWALLOW WITH HELPFUL QUES, WILL FOLLOW WITH PLAN OF CARE HOURLY ROUNDS COMPLETED,
[2017-10-17 19:30] VITALS: BP 172/81
[2017-10-18] VITALS: BP 141/86
[2017-10-18 04:00] VITALS: BP 130/69
[2017-10-18 05:04] LABS: ABSOLUTE EOSINOPHILS 0.2 thou/uL (0.0-0.7); ABSOLUTE LYMPHOCYTES 1.9 thou/uL (0.8-5.3); ABSOLUTE MONOCYTES 0.7 thou/uL (0.0-1.2); ABSOLUTE NEUTROPHILS 5.9 thou/uL (1.6-8.1); BASOPHILS 0.6 %; EOSINOPHILS 1.9 %; HEMATOCRIT 38.3 % (37.0-47.0); HEMOGLOBIN 12.8 gm/dL (12.0-15.0); LYMPHOCYTES 22.2 %; MCH 29.4 pg (26.0-34.0); MCHC 33.4 g/dL (28.0-37.0); MONOCYTES 8.4 %; MPV 8.4 fl. (7.2-11.1); NUCLEATED RBCS 0 /100WBC; PLATELET COUNT* 207 thou/uL (150-400); POLYS 66.9 %; RBC 4.35 mil/uL (4.20-5.00); RDW-CV 15.4 % (10.5-14.5); WBC 8.8 thou/uL (4.0-11.0)
--- NOTE | 2017-10-18 05:29 | NUR ---
RECEIVED REPORT AND ASSUMED CARE AT 1900. B/P ELEVATED, OTHERWISE VSS. CARDAIC MONITORING IN PLACE. PT DENIES COMPLAINTS OF PAIN. ASSESSMENT COMPLETED CHARTED, MEDICATION ADMIN PER EMAR. PT ON BEDREST, ON RA. POSITION CHANGED EVERY TWO HOURS. ORAL CARE GIVEN TOPT BY NURSING. NIH=14. BED LOCKED IN LOWEST POSITION, CALL LIGHT WITHIN REACH, HOURLY ROUDNING COMPLETED, ALL NEEDS MET. WILL CONTINUE TO MONITOR
[2017-10-18 05:46] LABS: ALBUMIN 3.3 g/dL (3.4-5.0); CALCIUM 9.7 mg/dL (8.5-10.1); CREATININE 1.1 mg/dL (0.6-1.3); POTASSIUM 3.4 mmol/L (3.5-5.1); TOTAL BILIRUBIN 0.8 mg/dL (<0.1-1.0); TOTAL PROTEIN 6.2 g/dL (6.4-8.2)
[2017-10-18 07:15] LABS: URINE BILIRUBIN NEGATIVE (Negative); URINE BLOOD NEGATIVE (Negative); URINE CLARITY CLEAR; URINE COLOR YELLOW; URINE GLUCOSE-RANDOM NEGATIVE (Negative); URINE KETONES NEGATIVE (Negative); URINE LEUKOCYTES-REFLEX 1+ (Negative); URINE NITRITE-REFLEX NEGATIVE (Negative); URINE PROTEIN NEGATIVE (Negative); URINE UROBILINOGEN 0.2 E.U./dl (0.2-1.0)
[2017-10-18 07:31] LABS: SQUAMOUS 4-10 Moderate /LPF (0-3)
[2017-10-18 07:32] LABS: BACTERIA-REFLEX 1-9 Few /HPF (None Seen); CASTS None Seen /LPF (None Seen); CRYSTALS None Seen /LPF (None Seen); MUCUS 4-6 Moderate strn/LPF (None Seen); URINE RBC 0-2 Rare /HPF (0-2); URINE WBC-REFLEX 6-15 Few /HPF (0-5)
[2017-10-18 08:00] VITALS: BP 159/79
--- NOTE | 2017-10-18 08:41 | NUR ---
DUONG RECIEVED A CALL FROM MING WITH [facility] AND SHE INFORMS THAT THE FACILITY HAS RECIEVED INSURANCE AUTH AND ARE ABLE TO ACCEPT THE PATIENT TODAY. CM TO F/U WITH MING TO DISCUSS TIME OF TRANSPORT. CM WILL REMAIN AVAILABLE TO ASSIST AND FOLLOW NEEDED.
[2017-10-18 12:03] VITALS: BP 196/98
[2017-10-18 12:10] VITALS: BP 196/98
[2017-10-18] MEDS ORDERED: ASPIR-TRIN325 MG PO (12:26)
[2017-10-18] MEDS ORDERED: LOPRESSOR25 PO (12:27)
[2017-10-18] MEDS ORDERED: LISINOPRIL20 MG PO (12:28)
[2017-10-18] MEDS ORDERED: LIPITOR40 MG PO (12:29)
--- NOTE | 2017-10-18 13:35 | NUR ---
REPORT CALLED TO PARMJIT AT [facility]. PT UP TO WC WITH GURWINDER. ALL BELONGINGS TAKEN WITH
== END 2017-10-18 13:48 | DRG 64 ==
LOC: M.ERS 16:53 → M.TBA-ER 17:47 → M.2W 17:47
PROVIDERS: Family Medicine; ADMIT Internal Medicine
PROC: 4A00X4Z Measurement of Central Nervous Electrical Activity, External Approach (ICD-10-PCS; principal; 2017-10-15)
DX: I63.9 Cerebral infarction, unspecified (principal); G93.40 Encephalopathy, unspecified; I50.32 Chronic diastolic (congestive) heart failure; G81.01 Flaccid hemiplegia affecting right dominant side; R29.810 Facial weakness; E11.9 Type 2 diabetes mellitus without complications; M10.9 Gout, unspecified; H40.9 Unspecified glaucoma; M19.90 Unspecified osteoarthritis, unspecified site; I11.0 Hypertensive heart disease with heart failure; R13.10 Dysphagia, unspecified; F32.9 Major depressive disorder, single episode, unspecified; Z96.642 Presence of left artificial hip joint; Z98.41 Cataract extraction status, right eye; Z98.42 Cataract extraction status, left eye; Z99.3 Dependence on wheelchair; Z79.899 Other long term (current) drug therapy; Z82.49 Family history of ischemic heart disease and other diseases of the circulatory system